=== PATIENT | female | born 1960 | race Caucasian/White ===

== ENCOUNTER 2023-03-24 08:59 | Outpatient (AMB) | payer BC, SELFPAY ==
--- NOTE | 2023-03-24 08:58 | MHC.OFFVIS ---
Intake Intake Visit Reasons: OAB Intake Note: New Patient presents for initial visit for Overactive Bladder Urology Medications: Oxybutynin Blood Thinner:none PVR: 0ml's Lens Cutter Required: No Accompanied by: Self / Same As Patient Allergies Sulfa (Sulfonamide Antibiotics) Allergy (Verified 03/24/23 09:07) Rash HPI HPI Comments History of Present Illness Details Taty is a very pleasant 62-year-old female patient of Dr. Gallagher. She has a past medical history of breast cancer. She presents to the office today as a new patient for ongoing lower urinary tract symptoms. In discussion with the patient today she reports to be doing and feeling well. She reports having started oxybutynin 2-3 years ago for her overactive bladder and felt this was helpful for her urinary frequency and urgency however has noted increased urinary symptoms over the last 1-2 months. She reports having had a urinary tract infection and noting symptoms persisted despite treatment of a UTI. She denies any previous history of chronic urinary tract infections. She otherwise denies incontinence, hematuria, dysuria, foul smelling urine, changes to urinary stream, flank pain, fever, and or chills. In office urinalysis results reviewed with the patient today. PVR 0 mL. Discussed at length potential causes for lower urinary tract symptoms patient is experiencing. Discussed obtaining retroperitoneal ultrasound for further assessment evaluation. She otherwise offers no other issues or concerns at this time. [facility] Medical History Breast cancer Surgical History History of cholecystectomy History of knee surgery History of lumpectomy Review of Systems Const All systems reviewed & are unremarkable except as noted in HPI and below Physical Exam Const General: cooperative, healthy appearing, comfortable, no acute distress, well developed, alert and awake Nutritional Appearance: average body habitus Orientation/consciousness: patient oriented x3 Limitations: no limitations HEENT Head: Yes normal to inspection, Yes normocephalic and Yes atraumatic Ears: hearing grossly normal bilaterally Eyes General: appearance normal, both eyes and all related structures Neck Neck: Yes normal visual inspection and Yes trachea midline Chest Chest palpation & inspection: normal inspection of the chest Resp Effort & Inspection: normal respiratory effort and able to speak in complete sentences Cardio Rate: regular rate GI Inspection: Yes normal to inspection General: Yes no CVA tenderness Back/Spine/Pelvis Back: no CVA tenderness Skin General skin exam: no rashes or lesions noted Neuro General: patient oriented x3 Extrem General: Yes normal to inspection Psych Appearance: grossly normal and well kempt Mental Status: mental status grossly normal Speech and movement: Normal speech and movement present and Clear speech present Affect: normal affect Attitude: cooperative Thought process: Normal thought process present Thought content: Normal thought content present Insight: Good insight present (Psych) Judgement: Good judgement present (Psych) Office Procedures Post Void Residual Post Residual Void Post Void Residual (PVR): 0 10564-Hycw Void Residual by ultrasound Results AMB Urinalysis, Automated UA Leukoctes 15 Mariah/uL Last Edit by [employer] Brady on 03/24/23 09:21 UA Nitrite Negative Last Edit by [employer]ava Synbiota on 03/24/23 09:21 UA Urobilinogen 0.2 mg/dL Last Edit by [employer] on 03/24/23 09:21 UA Protein 15 mg/dL Last Edit by [employer] on 03/24/23 09:21 UA pH 7.0 Last Edit by [employer] on 03/24/23 09:21 UA Blood 10 Demario/uL Last Edit by Y[employer]hong [employer] on 03/24/23 09:21 UA Specific [place] 1.010 Last Edit by Y[employer]ong [employer] on 03/24/23 09:21 UA Ketone Negative Last Edit by Y[employer] on 03/24/23 09:21 UA Bilirubin 0 mg/dL Last Edit by Yonghong [employer] on 03/24/23 09:21 UA Glucose 0 mg/dL Last Edit by Yonghong [employer] on 03/24/23 09:21 Results Reviewed Results Reviewed: Laboratory Last Values Urine pH (Auto) 7.0 03/24/23 09:11 Specific [place] (Auto) 1.010 03/24/23 09:11 Urine Protein (Auto) 15 mg/dL 03/24/23 09:11 Glucose (UA)(Auto) 0 mg/dL 03/24/23 09:11 Urine Ketones (Auto) Negative 03/24/23 09:11 Urine Blood (Auto) 10 Demario/uL 03/24/23 09:11 Urine Nitrite (Auto) Negative 03/24/23 09:11 Urine Bilirubin (Auto) 0 mg/dL 03/24/23 09:11 Urine Urobilinogen (Auto) 0.2 mg/dL 03/24/23 09:11 Leukocyte Esterase (Auto) 15 Mariah/uL 03/24/23 09:11 Assessment & Plan Assessment & Plan (1) Lower urinary tract symptoms: Code(s): R39.9 - Unspecified symptoms and signs involving the genitourinary system (2) Nocturia: Code(s): R35.1 - Nocturia (3) Urinary frequency: Code(s): R35.0 - Frequency of micturition (4) Urinary urgency: Code(s): R39.15 - Urgency of urination Plan In office urinalysis results reviewed with the patient today; as noted above. PVR 0 mL. Discussed obtaining retroperitoneal ultrasound for further assessment evaluation. Stop oxybutynin. Start Myrbetriq as discussed and prescribed. Discussed bladder triggers/irritants. Discussed potential for near future in office urodynamics and or cystoscopy for further assessment evaluation if symptoms persist and/or worsen. Discussed UTI prevention with D mannose supplement, vitamin-C, increasing fluid intake, behavioral therapy with timed voiding, perineal hygiene and postcoital voiding, and management of constipation with stool softeners and increased fiber intake. Follow-up in 6 weeks with PVR and imaging to be completed prior; or sooner with any issues, concerns, and or questions. Orders: Orders US retroperitoneal comp Today R35.0 - Frequency of micturition, R35.1 - Nocturia, R39.15 - Urgency of urination, R39.9 - Unspecified symptoms and signs involving the genitourinary system AMB Urinalysis Automated Today Z13.9 - Encounter for screening, unspecified AMB Post Void Residual by ultrasound Today Z13.9 - Encounter for screening, unspecified Medications: New mirabegron ER (Myrbetriq) 25 mg PO DAILY 30 tabs 1RF 30 days N30.10 - Interstitial cystitis (chronic) without hematuria, N32.81 - Overactive bladder, R35.1 - Nocturia, R39.15 - Urgency of urination Patient Instructions: The patient had an opportunity to ask questions regarding the treatment plan. All questions were answered. Physical exam, labs, and imaging were discussed and reviewed in detail. As well as risks, benefits, and discussion of treatment choices. No major barriers to understanding were identified. The patient expressed understanding and agreement with the above treatment plan. The patient was made aware they should contact our office by phone for worsening of their current condition, the appearance of new symptoms, or with any questions or concerns. Compliance is encouraged with any medications and follow up testing that is ordered. It is a privilege to be allowed the opportunity to participate in? your urological care.? Again, if you have any questions or concerns If you have any questions or concerns please do not hesitate to contact me. The office is [phone]. This note is constructed using voice recognition software. While every effort has been made to ensure accuracy quality tester errors may have been included. Yours sincerely, PAU Eisenberg Coding Level of Care Code New Pt Level 4 (48073) Diagnoses Lower urinary tract symptoms R39.9 Nocturia R35.1 Urinary frequency R35.0 Urinary urgency R39.15 CPT Codes Post Residual Void - PVR CPT Code: 29046-Cbjd Void Residual by ultrasound ([id number])
== END 2023-03-24 09:32 | disposition home or self-care (01) ==
PROVIDERS: PCP Registered Nurse; Visit Provider Nurse Practitioner Family
DX: R39.9 Unspecified symptoms and signs involving the genitourinary system (principal); R35.1 Nocturia; R35.0 Frequency of micturition; R39.15 Urgency of urination; Z13.9 Encounter for screening, unspecified
CPT/HCPCS: 99204

== ENCOUNTER → 2023-03-24 08:59 | Outpatient (BNVA) | payer BC, SELFPAY | PROVIDERS: PCP Registered Nurse; Visit Provider Nurse Practitioner Family | DX: R35.1 Nocturia (principal); R35.0 Frequency of micturition; R39.15 Urgency of urination; R39.9 Unspecified symptoms and signs involving the genitourinary system | CPT/HCPCS: 51798; 81003 ==

== ENCOUNTER 2023-04-24 08:48 | Outpatient (REF) | payer BC, SELFPAY ==
--- NOTE | ~2023-04-24 | US_ITS ---
EXAMINATION: US RETROPERITONEAL COMPLETE (RENAL) CLINICAL INFORMATION: Urgency of urination. COMPARISON: None available. TECHNIQUE: Real-time imaging of the kidneys and bladder. FINDINGS: RIGHT KIDNEY: 10.2 x 3.9 x 5.3 cm (SAG x AP x TRV). The kidney appears unremarkable in size, contour, and echogenicity. Renal cortical thickness is normal. No calculi or focal parenchymal lesion identified. No hydronephrosis. LEFT KIDNEY: 11.6 x 6.0 x 5.7 cm (SAG x AP x TRV). The kidney appears unremarkable in size, contour, and echogenicity. Renal cortical thickness is normal. 3.4 cm or less benign left renal cysts for which no further dedicated follow up imaging is indicated. No calculi or suspicious focal parenchymal lesion identified. No hydronephrosis. BLADDER: Well distended and normal. Bilateral ureteral jets are demonstrated. Prevoid bladder volume is 165 mL. Postvoid bladder volume is 13 mL. US/US retroperitoneal comp IMPRESSION: Essentially unremarkable retroperitoneal ultrasound examination.
== END 2023-04-24 08:49 | disposition home or self-care (01) ==
LOC: HO.HMGCX 08:48
PROVIDERS: PCP Family Medicine; Visit Provider Nurse Practitioner Family
DX: R39.15 Urgency of urination (principal); R35.0 Frequency of micturition; R35.1 Nocturia; R39.9 Unspecified symptoms and signs involving the genitourinary system
CPT/HCPCS: 76770

== ENCOUNTER 2023-05-07 10:37 | Outpatient (AMB) | payer BC, SELFPAY ==
--- NOTE | 2023-05-07 10:48 | A.OFFVIS_ITS ---
Intake Intake Visit Reasons: 6w/US(set) Intake Note: Patient presents for follow up visit for Frequency, Nocturia, and Urgency Urology Medications: Oxybutynin (patient stated that she went back on OXybutynin due to Myrbetriq causing high blood pressure and Fesoterodine causing stomach pa in and insomnia) Blood Thinner:none PVR: 0ml's Residential Energy Auditor Required: No Accompanied by: Self / Same As Patient Allergies Sulfa (Sulfonamide Antibiotics) Allergy (Verified 05/07/23 22:54) Rash Medication List - Last Reconciled 05/07/23 by SALO Eisenberg fluoxetine 40 mg PO DAILY meloxicam 15 mg PO DAILY valacyclovir 500 mg PO BID vibegron (Gemtesa) 75 mg PO DAILY 30 days HPI HPI Comments History of Present Illness Details Taty is a very pleasant 62-year-old female patient of Dr. Gallagher. She has a past medical history of breast cancer. She presents to the office today for follow-up. Of note, patient was seen approximately 6 weeks ago as a new patient for ongoing lower urinary tract symptoms at which time a retroperitoneal ultrasound was ordered for further assessment evaluation. She was also started on Myrbetriq 25 mg daily. Recent retroperitoneal ultrasound results reviewed with the patient today. Bilateral kidneys with no hydronephrosis, calculi, or lesions noted. Left kidney with 3.4 cm benign left renal cyst for which no further imaging is recommended per radiology report. The bladder is well distended and normal. Bilateral ureteral jets are demonstrated. Pre void bladder volume is approximately 165 mL. Postvoid bladder volume is approximately 15 mL. In discussion with the patient today she reports having stopped Myrbetriq as she noted increased blood pressures. She has since trialed Toviaz 4 mg daily however has since discontinued this medication as she had been experiencing GI upset. She has previously trialed oxybutynin however felt this caused her to be confused. Discussed further assessment evaluation with urodynamics. This was discussed at length. Information provided on urodynamics and pelvic floor therapy. She otherwise denies incontinence, hematuria, dysuria, foul smelling urine, changes to urinary stream, flank pain, fever, and or chills. In office urinalysis results reviewed with the patient today. PVR 0 mL. Discussed at length potential causes for lower urinary tract symptoms patient is experiencing. She otherwise offers no other issues or concerns at this time. [facility] Medical History Breast cancer Surgical History History of cholecystectomy History of knee surgery History of lumpectomy Review of Systems Const All systems reviewed & are unremarkable except as noted in HPI and below Physical Exam Const General: cooperative, healthy appearing, comfortable, no acute distress, well developed, alert and awake Nutritional Appearance: average body habitus Orientation/consciousness: patient oriented x3 Limitations: no limitations HEENT Head: Yes normal to inspection, Yes normocephalic and Yes atraumatic Ears: hearing grossly normal bilaterally Eyes General: appearance normal, both eyes and all related structures Neck Neck: Yes normal visual inspection and Yes trachea midline Chest Chest palpation & inspection: normal inspection of the chest Resp Effort & Inspection: normal respiratory effort and able to speak in complete sentences Cardio Rate: regular rate GI Inspection: Yes normal to inspection General: Yes no CVA tenderness Back/Spine/Pelvis Back: no CVA tenderness Skin General skin exam: no rashes or lesions noted Neuro General: patient oriented x3 Extrem General: Yes normal to inspection Psych Appearance: grossly normal and well kempt Mental Status: mental status grossly normal Speech and movement: Normal speech and movement present and Clear speech present Affect: normal affect Attitude: cooperative Thought process: Normal thought process present Thought content: Normal thought content present Insight: Good insight present (Psych) Judgement: Good judgement present (Psych) Office Procedures Post Void Residual Post Residual Void Post Void Residual (PVR): 0 10339-Qixw Void Residual by ultrasound Results AMB Urinalysis, Automated UA Leukoctes 0 Mariah/uL Last Edit by Aleks Montgomery on 05/07/23 11:18 UA Nitrite Negative Last Edit by Aleks Montgomery on 05/07/23 11:18 UA Urobilinogen 0.2 mg/dL Last Edit by Aleks Montgomery on 05/07/23 11:18 UA Protein 0 mg/dL Last Edit by Aleks Montgomery on 05/07/23 11:18 UA pH 7.0 Last Edit by Aleks Montgomery on 05/07/23 11:18 UA Blood 25 Demario/uL Last Edit by Aleks Montgomery on 05/07/23 11:18 UA Specific [place] 1.005 Last Edit by Aleks Montgomery on 05/07/23 11:18 UA Ketone Negative Last Edit by Aleks Montgomery on 05/07/23 11:18 UA Bilirubin 0 mg/dL Last Edit by Aleks Montgomery on 05/07/23 11:18 UA Glucose 0 mg/dL Last Edit by Aleks Montgomery on 05/07/23 11:18 Results Reviewed Results Reviewed: Laboratory Last Values Urine pH (Auto) 7.0 05/07/23 10:52 Specific [place] (Auto) 1.005 05/07/23 10:52 Urine Protein (Auto) 0 mg/dL 05/07/23 10:52 Glucose (UA)(Auto) 0 mg/dL 05/07/23 10:52 Urine Ketones (Auto) Negative 05/07/23 10:52 Urine Blood (Auto) 25 Demario/uL 05/07/23 10:52 Urine Nitrite (Auto) Negative 05/07/23 10:52 Urine Bilirubin (Auto) 0 mg/dL 05/07/23 10:52 Urine Urobilinogen (Auto) 0.2 mg/dL 05/07/23 10:52 Leukocyte Esterase (Auto) 0 Mariah/uL 05/07/23 10:52 Date of Service: 04/24/23 EXAMINATION: US RETROPERITONEAL COMPLETE (RENAL) FINDINGS: RIGHT KIDNEY: 10.2 x 3.9 x 5.3 cm (SAG x AP x TRV). The kidney appears unremarkable in size, contour, and echogenicity. Renal cortical thickness is normal. No calculi or focal parenchymal lesion identified. No hydronephrosis. LEFT KIDNEY: 11.6 x 6.0 x 5.7 cm (SAG x AP x TRV). The kidney appears unremarkable in size, contour, and echogenicity. Renal cortical thickness is normal. 3.4 cm or less benign left renal cysts for which no further dedicated follow up imaging is indicated. No calculi or suspicious focal parenchymal lesion identified. No hydronephrosis. BLADDER: Well distended and normal. Bilateral ureteral jets are demonstrated. Prevoid bladder volume is 165 mL. Postvoid bladder volume is 13 mL. IMPRESSION: Essentially unremarkable retroperitoneal ultrasound examination. Assessment & Plan Assessment & Plan (1) Lower urinary tract symptoms: Code(s): R39.9 - Unspecified symptoms and signs involving the genitourinary system (2) Nocturia: Code(s): R35.1 - Nocturia (3) Urinary frequency: Code(s): R35.0 - Frequency of micturition (4) Urinary urgency: Code(s): R39.15 - Urgency of urination Plan In office urinalysis results reviewed with the patient today; as noted above. PVR 0 mL. Recent retroperitoneal ultrasound results reviewed with the patient today; as noted above. Patient with multiple failed medications (Myrbetriq, Toviaz, and oxybutynin) Start Gemtesa as discussed and prescribed. Discussed at length pelvic floor therapy; information provided. Discussed further assessment evaluation with in office urodynamics; this was discussed at length. Will add to urodynamics list Discussed bladder triggers/irritants. Follow-up in 1-2 months; or sooner with any issues, concerns, and or questions. Orders: Orders AMB Post Void Residual by ultrasound Today R39.9 - Unspecified symptoms and signs involving the genitourinary system AMB Urinalysis Automated Today Z13.9 - Encounter for screening, unspecified Medications: New vibegron (Gemtesa) 75 mg PO DAILY 30 days 30 tabs 1RF N32.81 - Overactive bladder Discontinued fesoterodine ER (Toviaz) Discontinued Reason: Doctor's Order 4 mg PO DAILY 30 days 30 tabs 1RF N39.41 - Urge incontinence Patient Instructions: The patient had an opportunity to ask questions regarding the treatment plan. All questions were answered. Physical exam, labs, and imaging were discussed and reviewed in detail. As well as risks, benefits, and discussion of treatment choices. No major barriers to understanding were identified. The patient expressed understanding and agreement with the above treatment plan. The patient was made aware they should contact our office by phone for worsening of their current condition, the appearance of new symptoms, or with any questions or concerns. Compliance is encouraged with any medications and follow up testing that is ordered. It is a privilege to be allowed the opportunity to participate in? your urological care.? Again, if you have any questions or concerns If you have any questions or concerns please do not hesitate to contact me. The office is [phone]. This note is constructed using voice recognition software. While every effort has been made to ensure accuracy caramel candy maker errors may have been included. Yours sincerely, OPAL Eisenberg- Coding Level of Care Code Est Pt Level 4 (72441) Diagnoses Lower urinary tract symptoms R39.9 Nocturia R35.1 Urinary frequency R35.0 Urinary urgency R39.15 CPT Codes Post Residual Void - PVR CPT Code: 69678-Mbvz Void Residual by ultrasound ([id number])
== END 2023-05-07 11:54 | disposition home or self-care (01) ==
PROVIDERS: PCP Registered Nurse; Visit Provider Nurse Practitioner Family
DX: R39.9 Unspecified symptoms and signs involving the genitourinary system (principal); R35.1 Nocturia; R35.0 Frequency of micturition; R39.15 Urgency of urination
CPT/HCPCS: 99214

== ENCOUNTER → 2023-05-07 10:37 | Outpatient (BNVA) | payer BC, SELFPAY | PROVIDERS: PCP Registered Nurse; Visit Provider Nurse Practitioner Family | DX: R39.9 Unspecified symptoms and signs involving the genitourinary system (principal); R35.1 Nocturia; R35.0 Frequency of micturition; R39.15 Urgency of urination | CPT/HCPCS: 51798; 81003 ==

== ENCOUNTER 2023-06-29 08:49 | Outpatient (AMB) | payer MEDICARE, BC, SELFPAY ==
--- NOTE | 2023-06-29 08:49 | MHC.OFFVIS ---
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 Gallagher. She has a past medical history of breast cancer. She presents to the office today for follow-up of her recurrent urinary tract infections and lower urinary tract symptoms. Of note, patient was seen approximately 2 months ago at which time Festosterodine was discontinued and the patient was started on Gemtesa. In discussion with the patient today she reports having stopped Gemtesa as she was experiencing increased appetite and felt it was worsening her nocturia. She reports since being off all urological medications she is only getting up 2-3 times per night and does not feel this bothersome. She would like to continue with surveillance monitoring of her lower urinary tract symptoms. She has previously trialed Myrbetriq in the past and found this helpful however it caused her to have hypertension. She has also trialed oxybutynin in the past and did not find this helpful in treatment of her lower urinary tract symptoms. Previous workup has included a retroperitoneal ultrasound noting bilateral kidneys with no hydronephrosis, calculi, or lesions noted. Left kidney with 3.4 cm benign left renal cyst for which no further imaging is recommended per radiology report. The bladder is well distended and normal. Bilateral ureteral jets are demonstrated. Pre void bladder volume is approximately 165 mL. Postvoid bladder volume is approximately 15 mL. Discussed further assessment evaluation with urodynamics. This was discussed at length. Information provided on urodynamics and pelvic floor therapy. She otherwise denies incontinence, hematuria, dysuria, foul smelling urine, changes to urinary stream, flank pain, fever, and or chills. She otherwise offers no other issues or concerns at this time. [facility] Medical History Breast cancer Surgical History History of cholecystectomy History of knee surgery History of lumpectomy Review of Systems Const All systems reviewed & are unremarkable except as noted in HPI and below Physical Exam Const General: cooperative, healthy appearing, comfortable, no acute distress, well developed, alert and awake Orientation/consciousness: patient oriented x3 Resp Effort & Inspection: normal respiratory effort and able to speak in complete sentences Neuro General: patient oriented x3 Psych Appearance: grossly normal and well kempt Mental Status: mental status grossly normal Speech and movement: Normal speech and movement present and Clear speech present Affect: normal affect Attitude: cooperative Thought process: Normal thought process present Thought content: Normal thought content present Insight: Fair insight present (Psych) Judgement: Fair judgement present (Psych) Telehealth Telehealth Telehealth Platform: Telephone Location of provider rendering services: practice address Location of patient: address on file Patient Identification confirmed using: Name, : Yes Telehealth method: voice only Patient verbally consented to treatment: Yes Patient verbally consented to billing insurance company: Yes Patient informed of any privacy concerns related to visit: Yes Minutes spent on Phone/Video with Pt.: 15 Assessment & Plan Assessment & Plan (1) Lower urinary tract symptoms: Code(s): R39.9 - Unspecified symptoms and signs involving the genitourinary system Category: Medical (2) Nocturia: Code(s): R35.1 - Nocturia Category: Medical (3) Urinary frequency: Code(s): R35.0 - Frequency of micturition Category: Medical (4) Urinary urgency: Code(s): R39.15 - Urgency of urination Category: Medical Plan Discussed at length potential causes for lower urinary tract symptoms patient is experiencing. Stop Gemtesa. Continue with surveillance monitoring at this time per patient request. Discuss urodynamics in the near future if symptoms worsen and or arise. Discussed bladder triggers/irritants. Discussed pelvic floor therapy Discussed UTI prevention with D mannose supplement, vitamin-C, increasing fluid intake, behavioral therapy with timed voiding, perineal hygiene and postcoital voiding, and management of constipation with stool softeners and increased fiber intake. Follow-up in 6 months; or sooner with any issues, concerns, and or questions. Patient Instructions: The patient had an opportunity to ask questions regarding the treatment plan. All questions were answered. Physical exam, labs, and imaging were discussed and reviewed in detail. As well as risks, benefits, and discussion of treatment choices. No major barriers to understanding were identified. The patient expressed understanding and agreement with the above treatment plan. The patient was made aware they should contact our office by phone for worsening of their current condition, the appearance of new symptoms, or with any questions or concerns. Compliance is encouraged with any medications and follow up testing that is ordered. It is a privilege to be allowed the opportunity to participate in? your urological care.? Again, if you have any questions or concerns If you have any questions or concerns please do not hesitate to contact me. The office is [phone]. This note is constructed using voice recognition software. While every effort has been made to ensure accuracy textile colorist formulator errors may have been included. Yours sincerely, PAU Eisenberg Coding Level of Care Code Tele Est Pt Level 3 (80644) Diagnoses Lower urinary tract symptoms R39.9 Nocturia R35.1 Urinary frequency R35.0 Urinary urgency R39.15
== END 2023-06-29 09:15 | disposition home or self-care (01) ==
LOC: HO.HUSH 08:49
PROVIDERS: PCP Registered Nurse; Visit Provider Nurse Practitioner Family
DX: R39.9 Unspecified symptoms and signs involving the genitourinary system (principal); R35.1 Nocturia; R35.0 Frequency of micturition; R39.15 Urgency of urination
CPT/HCPCS: 99442

== ENCOUNTER → 2023-06-29 08:49 | Outpatient (BNVA) | payer BC, SELFPAY | PROVIDERS: PCP Registered Nurse; Visit Provider Nurse Practitioner Family ==